=== PATIENT | male | born 1960 | race Caucasian/White ===

== ENCOUNTER → 2023-08-20 | Outpatient (CLI) | payer OTHER ==
[~2023-08-20] VITALS: Ht 175.3 cm; Wt 112.5 kg
[~2023-08-20] MED LIST: AMLO-250 PO; APIX5TAB PO; ATOR40TA70 PO; CIPR500S2 PO; FINA5TAB6 PO; HYDR200T71 PO; LOSA1TAB23 PO; METO50TA7 PO; PANT40GR PO; STL80T PO; TMSL.4C PO; TRAM50TA3 PO; TROS20TA3 PO
== END | disposition home or self-care (01) ==
LOC: PREOP 06:06
PROVIDERS: ATTEND Specialist
DX: Z01.818 Encounter for other preprocedural examination (principal)

== ENCOUNTER 2023-09-01 10:31 | Day surgery (SDC) | payer OTHER ==
[2023-09-01] VITALS (7 sets, daily range): BP systolic 114–143; BP diastolic 67–100
[~2023-09-01] VITALS: Ht 154.9 cm; Wt 112.5 kg
[2023-09-01] MEDS ORDERED: LACTATED RINGERS 1,000 ML 1,000 ML IV PRN ×2 (10:45)
[2023-09-01] MEDS ORDERED: MIDAZOLAM INJ 2 MG/2 ML VIAL ONE (11:08)
[2023-09-01] MEDS ORDERED: LEVOFLOXACIN 500 MG/D5W 100 ML (PRE-MIX) IV ONE (11:15)
--- NOTE | 2023-09-01 11:15 | Progress Note-Pre Operative ---
Pre-Operative Progress Note Date of Available H&P: Sep 01, 2023 Date H&P Reviewed: Sep 01, 2023 Time H&P Reviewed: 11:14 History & Physical: H&P Reviewed, No changes noted Pre-Operative Diagnosis: elevated psa Anita VEGA MD Sep 01, 2023 11:14
--- NOTE | 2023-09-01 11:52 | Anesthesia-General Post-Op ---
MAC Patient Condition Mental Status/LOC: Same as Preop Cardiovascular: Satisfactory Nausea/Vomiting: Absent Respiratory: Satisfactory Pain: Controlled Complications: Absent Post Op Complications Complications None Follow Up Care/Instructions Patient Instructions None needed. Anesthesiology Discharge Order Discharge Order Patient is doing well, no complaints, stable vital signs, no apparent adverse anesthesia problems. No complications reported per nursing. HAILEY LAW CRNA Sep 01, 2023 11:52
--- NOTE | 2023-09-01 12:11 | Progress Note-Post Operative ---
Post-Operative Progess Note Surgeon (s)/Casino Surveillance Officer (s) Surgeon Anita VEGA MD Casino Surveillance Officer n/a Pre-Operative Diagnosis elevated psa Post-Operative Diagnosis same Post-Op Procedure Note Date of Procedure: Sep 01, 2023 Name of Procedure Performed: TRUS biopsy of prostate Description & Findings Description and Findings: n/a Estimated Blood Loss minimal Packing none. Specimen(s) collected/removed prostate biopsy Anita VEGA MD Sep 01, 2023 12:10
--- NOTE | 2023-09-01 12:13 | Discharge Inst-Urology ---
Discharge Inst-Urology Reconcile Patient Problems Problems Reviewed?: Yes Patient Instructions/Follow Up Plan/Assessment/Instructions Please make appointment to been seen in office in one week Increase oral fluids for 48 hours and then as needed. Diet and Activity as tolerated. If questions or concerns contact your physician Or seek help at emergency department. Anita VEGA MD Sep 01, 2023 12:13
--- NOTE | 2023-09-01 19:04 | OPERATIVE REPORT ---
DATE OF SERVICE: 09/01/2023 PREOPERATIVE DIAGNOSIS: Elevated PSA. POSTOPERATIVE DIAGNOSIS: Elevated PSA. PROCEDURE PERFORMED: Transrectal ultrasound biopsy of prostate. INDICATIONS FOR SURGERY: Please see history and physical. DESCRIPTION OF PROCEDURE: After informed consent was obtained, a MAC anesthetic was administered. The patient received IV Levaquin. He was placed in lateral decubitus position on the gurney. Transrectal ultrasound was inserted. Prostate imaged in sagittal and transverse views. Width was 56 mm, height 51 mm, length 72 mm. Volume measurement was 107 mL. Using ultrasound guidance, biopsies were obtained from the base, mid and apex, two from each side, one medial and one lateral from each lobe of the prostate, one from each transitional zone and one from each seminal vesicle. The patient was then taken to recovery room, having tolerated the procedure well. He will follow up in one week to go over the results. Job ID: [id number] DocumentID: [id number] Dictated Date: 09/01/2023 12:47:54 Nursing Scheduler Date: 09/01/2023 19:02:00 Dictated By: Regan VEGA MD
== END 2023-09-01 12:55 | disposition home or self-care (01) ==
LOC: SDC 10:31
PROVIDERS: ATTEND Specialist
DX: R97.20 Elevated prostate specific antigen [PSA] (principal); E66.9 Obesity, unspecified; Z68.42 Body mass index [BMI] 45.0-49.9, adult; Z87.891 Personal history of nicotine dependence
CPT/HCPCS: 55700; 87081; 88344; G0416; 88305